=== PATIENT | male | born 1985 | race Hispanic/Latino ===

== ENCOUNTER 2020-09-03 22:47 | Emergency (ER) | payer OTHER, SELFPAY ==
[2020-09-03] MEDS ORDERED: Lidocaine 1% (PF) 30 ML VIAL ONE (23:00)
[2020-09-03] MEDS ORDERED: Bacitracin 1 PK ONE (23:10)
== END 2020-09-03 23:27 ==
LOC: NAV ERS 22:47
DX: S01.81XA Laceration without foreign body of other part of head, initial encounter (principal); W22.8XXA Striking against or struck by other objects, initial encounter
CPT/HCPCS: 12013; J2001